=== PATIENT | female | born 1970 | race Caucasian/White ===

== ENCOUNTER 2017-10-19 23:50 | Emergency (ER) | payer OTHER ==
[~2017-10-19] VITALS: Ht 165.1 cm; Wt 63.5 kg
[2017-10-20] MEDS ORDERED: HYDROCODON-ACE1 EAC7 PO (00:55)
[2017-10-20 01:25] VITALS: BP 141/75
== END 2017-10-20 01:25 | disposition home or self-care (01) ==
LOC: M.ERS 23:50
DX: S76.812A Strain of other specified muscles, fascia and tendons at thigh level, left thigh, initial encounter (principal); F17.210 Nicotine dependence, cigarettes, uncomplicated; X58.XXXA Exposure to other specified factors, initial encounter; Y93.89 Activity, other specified; Y92.89 Other specified places as the place of occurrence of the external cause; Y99.8 Other external cause status